=== PATIENT | female | born 1960 | race Caucasian/White ===

== ENCOUNTER 2020-11-01 16:18 | Inpatient (IN) | payer OTHER ==
[~2020-11-01] VITALS: Ht 152.4 cm; Wt 63.6 kg
--- NOTE | 2020-11-01 17:31 | NUR ---
DIESEL ENGINE I PIPE FITTER: PT AMBULATORY TO ROOM FROM LOBBY
--- NOTE | 2020-11-01 17:38 | NUR ---
TASK RN ASSISTING PRIMARY RN DYLLAN WITH PT CHECK IN. UA SENT FROM [facility]. 60 Y/O F PRESENTS STATING "N/V AND LEFT LOWER STOMACH PAIN FOR 2 WEEKS, WORSE OVER LAST FEW DAYS, WENT TO URGENT CARE TODAY, THEY DID XRAY THAT SHOWED LEFT URETER STONE AND MULTIPLE INTRARENAL STONES. I HAVE HAD STONES IN THE PAST THAT REQUIRED SURGERY SO THEY SENT ME HERE." RATES PAIN 8/10 LLQ ABD PAIN. LUQ/LLQ TENDER TO PALPATION. ASSESSMENT COMPLETED. A&OX4. SPOUSE AT BEDSIDE. CONT PULSE OX, BP MONITORS APPLIED. VSS. AWAITING EVAL BY ERP. WARM BLANKET PROVIDED FOR COMFORT. CALL LIGHT IN REACH. FALL PRECAUTIONS IN PLACE.
[2020-11-01] MEDS ORDERED: SERT25TA PO (17:45)
--- NOTE | 2020-11-01 17:50 | NUR ---
TASK RN: PT TO CT
[2020-11-01 17:54] LABS: MICROSCOPIC AUTO
--- NOTE | 2020-11-01 17:55 | NUR ---
REPORT AND TRANSFER OF CARE TO PRIMARY RAYMOND MIJARES AT THIS TIME. PT REMAINS IN CT
--- NOTE | 2020-11-01 18:00 | NUR ---
RECEIVED REPORT FROM RAYMOND EGAN. PT RESTING ON DEMETRI.
[2020-11-01 18:16] LABS: BASOPHILS % (AUTO) 1 % (0-1); EOSINOPHILS % (AUTO) 1 % (1-7); LYMPHOCYTES % (AUTO) 22 % (22-44); MEAN CORPUSCULAR HEMOGLOBIN 31.6 pg (27.0-34.8); MEAN CORPUSCULAR HGB CONC 34.4 g/dL (32.4-35.8); MEAN PLATELET VOLUME 7.4 fL (7.4-10.4); MONOCYTES % (AUTO) 7 % (2-9); NEUTROPHILS % (AUTO) 70 % (42-75); PLATELET COUNT 237 x10^3/uL (130-400); RED BLOOD COUNT 4.76 x10^6/uL (3.82-5.3); RED CELL DISTRIBUTION WIDTH 13.4 % (9.6-15.2)
[2020-11-01 18:21] LABS: MD NO
[2020-11-01 18:30] LABS: ALANINE AMINOTRANSFERASE 18 U/L (12-78); ALBUMIN 3.6 g/dL (3.4-5.0); ANION GAP 7 mmol/L (5-15); CALCIUM 9.1 mg/dL (8.5-10.1); CHLORIDE 110 mmol/L (98-107); CREATININE 1.18 mg/dL (0.55-1.02)
[2020-11-01 18:32] LABS: ALKALINE PHOSPHATASE 107 U/L (45-117); BILIRUBIN,TOTAL 0.7 mg/dL (0.2-1.0); TOTAL PROTEIN 7.4 g/dL (6.4-8.2)
--- NOTE | 2020-11-01 18:46 | NUR ---
PT RESTING ON GURNEY. NADN. HUGGINS.
[2020-11-01] MEDS ORDERED: MORPHINE SULFATE 4 MG/ML, 1ML ONE (18:59)
[2020-11-01] MEDS ORDERED: ONDANSETRON 2MG/ML, 2ML ONE ×2 (18:59→19:52)
[2020-11-01 19:00] VITALS: BP 132/75
[2020-11-01] MEDS ORDERED: MORPHINE SULFATE 4 MG/ML, 1ML IVPush PRN ×2 (19:00→19:30)
[2020-11-01] MEDS ORDERED: ONDANSETRON 2MG/ML, 2ML IVPush ONE (19:00)
[2020-11-01] MEDS ORDERED: ONDANSETRON 2MG/ML, 2ML IVPush PRN ×2 (19:30→20:00)
--- NOTE | 2020-11-01 19:37 | NUR ---
REPORT GIVEN TO CAMRON, RECEIVING RN. ALL QUESTIONS ANSWERED. AWAITING PT TRANSPORT.
[2020-11-01] MEDS ORDERED: ACETAMINOPHEN 325 MG TABLET PO PRN (20:00)
[2020-11-01] MEDS ORDERED: LABETALOL 5MG/ML, 20ML IVPush PRN (20:00)
[2020-11-01] MEDS ORDERED: OXYcodone IR 5MG TABLET PO PRN (20:00)
[2020-11-01] MEDS ORDERED: BISACODYL 10 MG SUPP PR PRN (20:00)
[2020-11-01] MEDS ORDERED: morphine SULFATE 10 MG/ML, 1ML IVPush PRN (20:00)
[2020-11-01] MEDS: LACTATED RINGERS 1,000 ML IV SCH (22:18)
[2020-11-01] MEDS: CEFTRIAXONE PMX 1GM/50ML 50 ML IV SCH (22:46)
[2020-11-02 01:16] VITALS: BP 96/60
[2020-11-02 05:15] LABS: BASOPHILS % (AUTO) 1 % (0-1); EOSINOPHILS % (AUTO) 2 % (1-7); LYMPHOCYTES % (AUTO) 22 % (22-44); MEAN CORPUSCULAR HEMOGLOBIN 31.5 pg (27.0-34.8); MEAN PLATELET VOLUME 7.5 fL (7.4-10.4); MONOCYTES % (AUTO) 8 % (2-9); NEUTROPHILS % (AUTO) 67 % (42-75); PLATELET COUNT 219 x10^3/uL (130-400); RED BLOOD COUNT 4.46 x10^6/uL (3.82-5.3); RED CELL DISTRIBUTION WIDTH 12.7 % (9.6-15.2)
[2020-11-02 05:22] LABS: ANION GAP 5 mmol/L (5-15); CALCIUM 8.6 mg/dL (8.5-10.1); CHLORIDE 111 mmol/L (98-107); CREATININE 1.08 mg/dL (0.55-1.02)
[2020-11-02 05:27] LABS: MD NO
[2020-11-02] MEDS: LACTATED RINGERS 1,000 ML IV SCH ×3 (05:27→22:16)
[2020-11-02 07:40] VITALS: BP 101/55
[2020-11-02] MEDS: SENNA/DOCUSATE TABLET PO SCH (07:58)
[2020-11-02] MEDS: ENOXAPARIN 40 MG/0.4 ML SQ SCH (07:59)
[2020-11-02] MEDS ORDERED: INDOMETHACIN 50 MG CAPSULE PO PRN (08:00)
[2020-11-02] MEDS ORDERED: MORPHINE SULFATE 4 MG/ML, 1ML IVPush PRN (08:00)
[2020-11-02 13:20] VITALS: BP 108/68
[2020-11-02] MEDS: ACETAMINOPHEN 325 MG TABLET PO PRN (15:38)
[2020-11-02] MEDS: OXYcodone IR 5MG TABLET PO PRN (15:39)
[2020-11-02 19:17] VITALS: BP 103/65
[2020-11-02] MEDS: CEFTRIAXONE PMX 1GM/50ML 50 ML IV SCH (22:16)
[2020-11-03 02:28] VITALS: BP 96/62
[2020-11-03] MEDS: ACETAMINOPHEN 325 MG TABLET PO PRN (04:14)
[2020-11-03] MEDS: OXYcodone IR 5MG TABLET PO PRN ×2 (04:15→10:49)
[2020-11-03] MEDS: LACTATED RINGERS 1,000 ML IV SCH (06:00)
[2020-11-03 06:51] VITALS: BP 120/72
[2020-11-03] MEDS: ENOXAPARIN 40 MG/0.4 ML SQ SCH (08:54)
[2020-11-03] MEDS: SENNA/DOCUSATE TABLET PO SCH (08:55)
[2020-11-03 12:40] VITALS: BP 124/74
[2020-11-03] MEDS ORDERED: CHLORHEXIDINE 15 ML UDC ONE (14:06)
[2020-11-03] MEDS ORDERED: OMNIPAQUE 350 MG/ML, 50 ML BOTTLE ONE (14:12)
[2020-11-03] MEDS ORDERED: CHLORHEXIDINE 15 ML UDC MM ONE (14:30)
[2020-11-03] MEDS ORDERED: MIDAZOLAM 1 MG/ML, 2ML ONE (14:49)
[2020-11-03] MEDS ORDERED: FENTANYL PF 250 MCG/5ML ONE (14:49)
[2020-11-03] MEDS ORDERED: CIPROFLOXACIN/PMX 400MG/200ML 200 ML ONE (15:28)
[2020-11-03] MEDS ORDERED: MEPERIDINE/PF 25MG/0.5ML IVPush PRN (15:30)
[2020-11-03] MEDS ORDERED: morphine SULFATE 10 MG/ML, 1ML IVPush PRN (15:30)
[2020-11-03] MEDS ORDERED: ACETAMINOPHEN 325 MG TABLET PO PRN (15:30)
[2020-11-03] MEDS ORDERED: FENTANYL PF 100 MCG/2ML IV PRN (15:30)
[2020-11-03] MEDS ORDERED: HYDROmorphone 1 MG/ML, 1ML INJ IVPush PRN (15:30)
[2020-11-03] MEDS ORDERED: hydrALAzine 20 MG/ML, 1ML IV PRN (15:30)
[2020-11-03] MEDS ORDERED: LABETALOL 5MG/ML, 20ML IV PRN (15:30)
[2020-11-03] MEDS ORDERED: HALOPERIDOL 5 MG/ML IV PRN (15:30)
[2020-11-03] MEDS ORDERED: OXYcodone 5 MG/5 ML ORAL.SOL UDC PO PRN (15:30)
[2020-11-03] MEDS ORDERED: PROMETHAZINE 25 MG/ML, 1ML IVPush PRN (15:30)
[2020-11-03] MEDS ORDERED: GLYCOPYRROLATE 0.2MG/1ML, 5ML ONE (16:30)
[2020-11-03] MEDS ORDERED: CEFAZOLIN 1,000 MG ONE (16:30)
[2020-11-03] MEDS ORDERED: DEXAMETHASONE 4 MG/ML, 1ML ONE (16:30)
[2020-11-03] MEDS ORDERED: ROCURONIUM 10MG/ML,5ML ONE (16:30)
[2020-11-03] MEDS ORDERED: NEOSTIGMINE 1 MG/ML, 10ML ONE (16:30)
[2020-11-03] MEDS ORDERED: PROPOFOL 10 MG/ML, 20ML ONE (16:30)
[2020-11-03] MEDS ORDERED: ONDANSETRON 2MG/ML, 2ML ONE (16:30)
[2020-11-03] MEDS ORDERED: ACET325T26 PO (17:12)
[2020-11-03] MEDS ORDERED: D5%-LACTATED RINGERS 1,000 ML IV SCH (18:00)
[2020-11-03 18:20] VITALS: BP 127/63
[2020-11-03] MEDS ORDERED: LACTATED RINGERS 1,000 ML IV SCH (20:00)
== END 2020-11-03 19:45 | disposition home or self-care (01) | DRG 670 ==
LOC: ED 21:05 → EDIP 21:06 → 4NE 21:35
PROVIDERS: ADMIT Family Medicine; ATTEND Internal Medicine
PROC: 0TC78ZZ Extirpation of Matter from Left Ureter, Via Natural or Artificial Opening Endoscopic (ICD-10-PCS; principal; 2020-11-03 15:00)
DX: N13.2 Hydronephrosis with renal and ureteral calculous obstruction (principal); E86.0 Dehydration; N17.0 Acute kidney failure with tubular necrosis; F41.9 Anxiety disorder, unspecified; G47.00 Insomnia, unspecified; Z20.822 Contact with and (suspected) exposure to COVID-19; K59.00 Constipation, unspecified; Z90.49 Acquired absence of other specified parts of digestive tract; Z90.710 Acquired absence of both cervix and uterus; Z88.0 Allergy status to penicillin; Z72.0 Tobacco use; Z71.6 Tobacco abuse counseling
CPT/HCPCS: 36415; 74176; 80048; 80053; 81001; 83690; 85025; 87086; 87635; 88300; 96374; 96375; 96376; 99285; G0378; J0690; J0696; J0744; J1100; J1650; J2250; J2405; J2704; J2710; J3010; Q9967; J2270; J7120

== ENCOUNTER 2021-01-14 09:31 | Outpatient (CLI) | payer OTHER ==
[~2021-01-14 09:31] MED LIST: ACET325T26 PO; SERT25TA PO
[2021-01-14 10:36] LABS: MICROSCOPIC AUTO
== END 2021-01-14 23:59 | disposition home or self-care (01) ==
LOC: STAR 09:31
PROVIDERS: ATTEND Urology
DX: Z01.812 Encounter for preprocedural laboratory examination (principal); N20.0 Calculus of kidney; Z20.822 Contact with and (suspected) exposure to COVID-19
CPT/HCPCS: 81001; 87086; U0003

== ENCOUNTER 2021-01-20 07:54 | Day surgery (SDC) | payer OTHER ==
[~2021-01-20] VITALS: Ht 152.4 cm; Wt 58.2 kg
[2021-01-20 08:54] VITALS: BP 101/66
[2021-01-20] MEDS ORDERED: CHLORHEXIDINE 15 ML UDC PO ONE (09:00)
[2021-01-20] MEDS ORDERED: LACTATED RINGERS 1,000 ML IV SCH (09:00)
[2021-01-20] MEDS ORDERED: FENTANYL PF 100 MCG/2ML ONE ×2 (09:15→12:04)
[2021-01-20] MEDS ORDERED: OMNIPAQUE 350 MG/ML, 50 ML BOTTLE ONE (09:56)
[2021-01-20] MEDS ORDERED: SUGAMMADEX 200 MG/2 ML IVPush ONE (10:03)
[2021-01-20] MEDS ORDERED: DEXAMETHASONE 4 MG/ML, 1ML ONE (10:03)
[2021-01-20] MEDS ORDERED: ROCURONIUM 10MG/ML,5ML ONE (10:03)
[2021-01-20] MEDS ORDERED: PROPOFOL 10 MG/ML, 20ML ONE (10:03)
[2021-01-20] MEDS ORDERED: ONDANSETRON 2MG/ML, 2ML ONE ×2 (10:03→12:06)
[2021-01-20] MEDS ORDERED: CEFAZOLIN 1,000 MG ONE (10:03)
[2021-01-20] MEDS ORDERED: SUCCINYLCHOLINE 20 MG/ML, 10ML ONE (10:03)
[2021-01-20] MEDS ORDERED: ALBUTEROL SULFATE 2.5 MG/3 ML NPPB PRN (10:30)
[2021-01-20] MEDS ORDERED: LABETALOL 5MG/ML, 20ML IV PRN (10:30)
[2021-01-20] MEDS ORDERED: METOCLOPRAMIDE 5 MG/ML, 2ML IV PRN (10:30)
[2021-01-20] MEDS ORDERED: MEPERIDINE/PF 25MG/0.5ML IVPush PRN (10:30)
[2021-01-20] MEDS ORDERED: hydrALAzine 20 MG/ML, 1ML IV PRN (10:30)
[2021-01-20] MEDS ORDERED: KETOROLAC 30 MG/1 ML IV PRN ×2 (10:30→12:00)
[2021-01-20] MEDS ORDERED: ONDANSETRON 2MG/ML, 2ML IVPush PRN (10:30)
[2021-01-20] MEDS ORDERED: OXYcodone 5 MG/5 ML ORAL.SOL UDC PO PRN (10:30)
[2021-01-20] MEDS ORDERED: HYDROmorphone 1 MG/ML, 1ML INJ IV PRN (10:30)
[2021-01-20] MEDS ORDERED: DIAZEPAM 5 MG/ML, 2ML IV PRN ×2 (10:30)
[2021-01-20] MEDS ORDERED: PROMETHAZINE 25 MG/ML, 1ML IV PRN (10:30)
[2021-01-20] MEDS ORDERED: OMNIPAQUE 350 MG/ML, 50 ML BOTTLE INJ ONE (10:49)
[2021-01-20] MEDS ORDERED: ONDANSETRON 2MG/ML, 2ML IV PRN (12:00)
[2021-01-20] MEDS ORDERED: OXYcodone/APAP 5/325MG TABLET PO PRN (12:00)
[2021-01-20] MEDS ORDERED: ACETAMINOPHEN 650 MG/20.3 ML UDC ONE (12:04)
[2021-01-20] MEDS ORDERED: OXYcodone 5 MG/5 ML ORAL.SOL UDC ONE (12:05)
[2021-01-20] MEDS ORDERED: KETOROLAC 30 MG/1 ML ONE (12:06)
[2021-01-20] MEDS: FENTANYL PF 100 MCG/2ML IV PRN ×2 (12:10→12:15)
[2021-01-20] MEDS ORDERED: MIDAZOLAM 1 MG/ML, 2ML ONE (13:33)
== END 2021-01-20 14:28 | disposition home or self-care (01) ==
LOC: OUT 07:54
PROVIDERS: ATTEND Urology
DX: N20.2 Calculus of kidney with calculus of ureter (principal); F32.9 Major depressive disorder, single episode, unspecified; F17.200 Nicotine dependence, unspecified, uncomplicated; Z79.1 Long term (current) use of non-steroidal anti-inflammatories (NSAID); Z79.891 Long term (current) use of opiate analgesic; Z79.899 Other long term (current) drug therapy; Z87.442 Personal history of urinary calculi; Z88.0 Allergy status to penicillin
CPT/HCPCS: 52356; 74420; 82360; 88300; C1758; C1769; C2617; J0330; J0690; J1100; J2250; J2405; J2704; J3010; J7120; Q9967